=== PATIENT | male | born 1930 | race Caucasian/White ===

== ENCOUNTER 2018-02-12 10:32 | Emergency (ER) | payer MEDICARE ==
[2018-02-12 12:25] VITALS: BP 151/35
--- NOTE | 2018-02-12 13:10 | UC ---
UC General HPI - HPI Summary HPI Summary: pt is c/o sinus congestion and pressure/pain that is making his teeth hurt. the drainage is yellow. he also notes a congested cough. he denies cp, sob, palpitations. symptoms x 1 month. admits to leg swelling but that is chronic and unchanged. - History of Current Complaint Chief Complaint: UCRespiratory Stated Complaint: SINUS COMPLAINT Time Seen by Provider: 02/12/18 12:51 Hx Obtained From: Patient, Family/Deputy Coroner Onset/Duration: Gradual Onset Timing: Constant Pain Intensity: 5 Associated Signs & Symptoms: Positive: Cough. Negative: Chest Pain, Dizziness, Fever, Hematemesis, SOB, Wheezing - Allergy/Home Medications Allergies/Adverse Reactions: Allergies Allergy/AdvReac Type Severity Reaction Status Date / Time latex Allergy Rash Verified 02/12/18 12:26 Home Medications: Home Medications Aspirin 325 mg PO DAILY 02/12/18 [History Confirmed 02/12/18] Hydrochlorothiazide TAB* [Hydrodiuril TAB*] 50 mg PO DAILY 02/12/18 [History Confirmed 02/12/18] Losartan Potassium 25 mg PO DAILY 02/12/18 [History Confirmed 02/12/18] Methylated Idolize 2 mg PO DAILY 02/12/18 [History Confirmed 02/12/18] NIFEdipine CAP* [Procardia CAP*] 60 mg PO QAM 02/12/18 [History Confirmed ] PMH/Surg Hx/FS Hx/Imm Hx - Additional Past Medical History Additional PMH: admit 11/01 for irregular heart beat but then d/c. denies hx afib Endocrine History: Dyslipidemia Cardiovascular History: Hypertension - Surgical History Surgical History: Yes Surgery Procedure, Year, and Place: b/l knees x3, left shoulder, colon section - Family History Known Family History: Positive: Unknown - Social History Occupation: Retired Alcohol Use: None Substance Use Type: None Smoking Status (MU): Never Smoked Tobacco - Immunization History Vaccination Up to Date: Yes Review of Systems Constitutional: Negative Skin: Negative Eyes: Negative ENT: Sinus Congestion, Sinus Pain/Tenderness Respiratory: Cough Cardiovascular: Negative Gastrointestinal: Negative Genitourinary: Negative Motor: Negative Neurovascular: Negative Musculoskeletal: Negative Neurological: Negative Psychological: Negative Is Patient Immunocompromised?: No All Other Systems Reviewed And Are Negative: Yes Physical Exam Triage Information Reviewed: Yes Appearance: Well-Appearing Vital Signs: Initial Vital Signs Temp 97.9 F 02/12/18 12:11 Pulse 56 02/12/18 12:11 Resp 20 02/12/18 12:11 BP 151/35 02/12/18 12:11 Pulse Ox 98 02/12/18 12:11 Vital Signs Reviewed: Yes Eyes: Positive: Conjunctiva Clear ENT: Positive: Pharynx normal, Nasal congestion, TMs normal, Sinus tenderness. Negative: Nasal drainage Neck: Positive: Supple, Nontender, No Lymphadenopathy, Other: - no JVD Respiratory: Positive: Lungs clear, No respiratory distress, Decreased breath sounds Cardiovascular: Positive: Other: - irregular. no murmurs. mild pitting edema BLE 's (pt notes chronic with no changes). Abdomen Description: Positive: Nontender, No Organomegaly, Soft. Negative: Distended, Guarding Bowel Sounds: Positive: Present Musculoskeletal: Positive: ROM Intact Neurological: Positive: Alert Psychological: Positive: Age Appropriate Behavior Skin Exam: Normal Diagnostics - EKG Cardiac Rate: Bradycardia Cardiac Rhythm: Other Rhythm: Normal - HB 1st vs second Ectopy: PVCs ST Segment: Normal Course/Dx - Course Course Of Treatment: exam c/w sinsuitis. ekg shows arrythmia, ? second degreee HB. pt refusing ER transfer. he is a&Ox3 and able to make decisions thus I must respect his wish to leave [facility]. will still tx his sinusitis but need to f/u with Dr Buchanan stressed and go to ER if changes his mind. - Differential Dx - Multi-Symptom Provider Diagnoses: leaving [facility]. sinusitis. arryhtmia Discharge - Sign-Out/Discharge Documenting (check all that apply): Discharge/Admit/Transfer - Discharge Plan Condition: Stable Disposition: AGAINST MEDICAL ADVICE Prescriptions: DOXYcycline CAP(*) [DOXYcycline 100MG CAP(*)] 100 mg PO BID #20 cap Patient Education Materials: Sinusitis (ED) Referrals: Chanel PAIZ,Augusto Mazariegos [Medical Doctor] - As Soon As Possible Additional Instructions: GO TO ER AT ANY TIME IF YOU CHANGE YOUR MIND - Billing Disposition and Condition Condition: STABLE Disposition: AMA
== END 2018-02-12 14:15 | disposition left against medical advice (07) ==
LOC: UCCORT 10:32
DX: J32.9 Chronic sinusitis, unspecified (principal); I49.9 Cardiac arrhythmia, unspecified; Z53.20 Procedure and treatment not carried out because of patient's decision for unspecified reasons; I10 Essential (primary) hypertension; E78.5 Hyperlipidemia, unspecified
CPT/HCPCS: 93005; 99212; G0463